=== PATIENT | male | born 1985 | race Hispanic/Latino ===

== ENCOUNTER → 2021-02-02 11:15 | Outpatient (CLI) | payer OTHER, SELFPAY ==
--- NOTE | 2021-02-02 | DI.MRI.S_ITS ---
PROCEDURE: MR CERVICAL SPINE WO CON INDICATIONS: Radiculopathy, cervical region TECHNIQUE: Noncontrast sagittal T1 spin echo and T2 fast spin echo, sagittal STIR, foraminal oblique sagittal T2 fast spin echo, and axial gradient echo or T2 fast spin echo through the cervical spine. COMPARISON: None. FINDINGS: Image quality: Excellent. Alignment and Curvature: Normal cervical spine vertebral body height and alignment. Normal configuration of the craniocervical junction. Bone Marrow: Normal marrow signal with no suspicious marrow signal abnormality or bone marrow edema demonstrated. Spinal Cord: Normal morphology and signal intensity of the cervical cord. There is no syrinx. Regional Soft Tissues: Prevertebral and paraspinous soft tissues are within normal limits. C2-C3: No spinal canal or neural foraminal stenosis. C3-C4: No spinal canal or neural foraminal stenosis. C4-C5: No spinal canal or neural foraminal stenosis. C5-C6: Posterior disc osteophyte complex flattens the ve ventral cord. Facet and uncovertebral hypertrophy contribute to moderate right and mild left neural foraminal stenosis. C6-C7: Posterior disc osteophyte complex flattens the ventral cord. Facet and uncovertebral hypertrophy contribute to moderate bilateral neural foraminal stenosis C7-T1: Posterior disc osteophyte complex without mass effect upon the cord. No spinal canal or neural foraminal stenosis. IMPRESSION: Multilevel multifactorial degenerative changes, with moderate neural foraminal stenosis bilaterally at C6-C7 and on the right at C5-C6. Correlate for any corresponding C5 or C6 radicular symptoms. Dictated by: Marco De Dios M.D. on 02/02/2021 at 12:48 Approved by: Marco De Dios M.D. on 02/02/2021 at 12:56
== END ==
PROVIDERS: Referring Provider Orthopaedic Surgery; Visit Provider Orthopaedic Surgery
DX: M47.22 Other spondylosis with radiculopathy, cervical region (principal); M48.02 Spinal stenosis, cervical region
CPT/HCPCS: 72141

== ENCOUNTER 2021-09-22 08:28 | Emergency (ER) | payer OTHER, SELFPAY ==
[2021-09-22 08:57] VITALS: BP 139/83; PULSE 70; RESP 18; TEMP 36.8; O2SAT 100; BMI 27.2
--- NOTE | 2021-09-22 09:10 | ED.BACK ---
HPI - Back Pain/Injury General Chief Complaint: Back Pain/Injury Stated Complaint: Low back pain Time Seen by Provider: 09/22/21 09:07 Source: patient History of Present Illness HPI Narrative: The patient is a 36-year-old male with prior history of back issues and diskectomy in 2013 at L4-L5. He presents today with increasing left-sided back pain and pain down his left leg. He states this is very similar to what he had before his surgery. He has not taken anything for pain. 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 He has previously had Toradol and Flexeril and gabapentin all with success. Related Data Previous Rx's Medication Instructions Recorded cyclobenzaprine 5 mg tablet 5 mg PO TID PRN #10 tab 09/22/21 gabapentin 300 mg capsule 300 mg PO BEDTIME #30 cap 09/22/21 Allergies Allergy/AdvReac Type Severity Reaction Status Date / Time No Known Drug Allergies Allergy Verified 09/22/21 09:02 Review of Systems Review of Systems Narrative: GENERAL: Denies chills, fatigue, malaise, fever, sweats, travel HEENT: Denies sinus pain, ear pain, sore throat, difficulty swallowing, neck pain RESPIRATORY: Denies dyspnea, cough, wheezing, hemoptysis, sputum. CARDIOVASCULAR: Denies chest pain, palpitations, orthopnea, edema GASTROINTESTINAL: Denies nausea, vomiting, abdominal pain, diarrhea, constipation, melena. : Denies dysuria, frequency, incontinence, hematuria, urinary retention, flank pain. MUSCULOSKELETAL: See HPI SKIN: No rash, no erythema, no pruritus NEUROLOGIC: Denies weakness, dizziness, headache, numbness, change in speech, confusion PSYCHIATRIC: No concerning psychosocial issues. 12 point review of systems is negative except for those stated above and HPI Patient History Social History Smoking Status: Never smoker Smoking Status: Never smoker Substance Use Type: does not use Exam Initial Vital Signs Initial Vital Signs: Vital Signs Temperature 98.3 F 09/22/21 08:57 Pulse Rate 70 09/22/21 08:57 Respiratory Rate 18 09/22/21 08:57 Blood Pressure 139/83 09/22/21 08:57 Pulse Oximetry 100 09/22/21 08:57 GENERAL: Alert pleasant male lying on bed HEENT: Head atraumatic,EOMI, pupils reactive, face symmetric, moist mucous membranes CARDIOVASCULAR: Regular rate and rhythm without murmurs, rubs or gallops. RESPIRATORY: Breath sounds equal bilaterally, no wheezes rales or rhonchi. BACK: No vertebral tenderness no step-offs in the scar noted pain in her left paraspinal muscles not reproducible with palpation EXTREMITIES: Normal range of motion, no clubbing or edema. Neurovascularly intact NEUROLOGICAL: Alert and oriented x4.Normal gait and speech. Sensation in lower extremities intact SKIN: Warm, dry, no laceration, no petechiae, no rashes or lesions. Course Orders Ordered: Discontinued Medications Ketorolac Tromethamine (Ketorolac 30 Mg/Ml Vial) 30 mg IM NOW ONE Stop: 09/22/21 09:19 Last Admin: 09/22/21 09:22 Dose: 30 mg Documented by: EARLENE Vital Signs Vital signs: Vital Signs - 8 hr 09/22/21 08:57 09/22/21 09:58 Temperature 98.3 F Pulse Rate 70 61 Respiratory Rate 18 Blood Pressure 139/83 126/70 Pulse Oximetry 100 100 MDM - Back Pain/Injury MDM Narrative Medical decision making narrative: At this time no indication for emergent MRI however he will likely need outpatient MRI. Symptoms are most consistent with sciatica. Pain has improved somewhat with Toradol. He has previously taken Flexeril and gabapentin he is given new prescriptions of each. His appointment with his PCP next week. Discharge Plan Departure Patient Disposition: Home Clinical Impression: Sciatica Instructions: DI for Sciatica Activity Restrictions/Additional Instructions: *You have been diagnosed with back pain with sciatica *What to do: At this time let us try medications to help with your pain. If you are still having pain please talk to your primary care provider about an MRI. *Continue to take medications as directed Flexeril 5 mg every 8 hours if needed for muscle spasm Gabapentin 300 mg at night Ibuprofen 800 mg every 8 hours if needed for duog-mq-spgrverd pain *Follow up with your primary care provider in 2-3 days or call [phone] *Return to ER if you should have increasing weakness change in bowel or bladder fever worsening back pain or any new, worsening or concerning symptoms Prescriptions: New gabapentin 300 mg capsule 300 mg PO BEDTIME Qty: 30 0RF cyclobenzaprine 5 mg tablet 5 mg PO TID PRN (Reason: muscle spasm) Qty: 10 0RF Referrals: Miscellaneous,Doctor, MD [Primary Care Provider] -
--- NOTE | 2021-09-22 09:19 | PC.NURSE ---
Pt denies loss bowel/bladder. Pt denies specific injury
[2021-09-22] MEDS: KETOROLAC 30 MG/ML VIAL IM (09:22)
[2021-09-22 09:58] VITALS: BP 126/70; PULSE 61; O2SAT 100
== END 2021-09-22 09:59 | disposition home or self-care (01) ==
PROVIDERS: Emergency Provider Emergency Medicine
DX: M54.42 Lumbago with sciatica, left side (principal)
CPT/HCPCS: 96372; 99283; J1885